=== PATIENT | male | born 1935 | race Caucasian/White ===

== ENCOUNTER → 2017-02-03 | Outpatient (CLI) | payer MEDICARE, OTHER | END | disposition home or self-care (01) | LOC: GMAJ 16:46 | PROVIDERS: ATTEND Family Medicine | DX: D51.3 Other dietary vitamin B12 deficiency anemia (principal) ==

== ENCOUNTER → 2017-04-30 | Outpatient (CLI) | payer MEDICARE, OTHER ==
--- NOTE | 2017-05-02 19:52 | US ---
EXAM DESCRIPTION: Carotid Duplex CLINICAL HISTORY: OCCLUSION AND STENOSIS OF LEFT CAROTID ARTERY COMPARISON: MRI scan of the brain October 2015. TECHNIQUE: Transcutaneous scanning utilizing 2-dimensional and Doppler modes to evaluate the bilateral carotid systems and vertebral arteries. Percentage of diameter of stenosis or no stenosis recorded will be based upon NASCET criteria. FINDINGS: Peak systolic/end diastolic (CM-Sec) CCA Right 99/16 Left 81/19. ICA Right proximal 64/9, mid 67/17. Left proximal 88/15, mid 132/29. Vertebral Right 50/9 Left 42/8. ECA (PS Only) Right 60 left 101. ICA/CCA peak systolic ratio: Right 0.7 Left 1.6 ICA/CCA end diastolic ratio: Right 1.1 Left 1.5 Vertebral arteries: antegrade flow. Comments: Bilateral atherosclerotic plaque in bilateral common carotid bulbs and the proximal ICAs. Minimal color turbulent flow in the proximal right ICA with spectral broadening. Area stenosis in the proximal ICA is 23% diameter stenosis is 37%. Color turbulent flow and spectral broadening in the proximal left ICA. Area stenosis in the left CCA bulb is 36% diameter stenosis is 38%. There is stenosis in the proximal left ICA is 71% and diameter stenosis is 64%. IMPRESSION: 1. 2-dimensional measurements at the proximal right ICA show critical area stenosis of 71% and diameter stenosis of 64%. The stenosis is less than 70% by Doppler evaluation. Consider CTA evaluation due to discordance of findings. Doppler evaluation of the remaining carotid systems and vertebral arteries shows no hemodynamically significant stenoses. 2. Moderate to severe amount of plaque seen in the carotid arteries bilaterally. Bilateral vertebral arteries showed antegrade-cephalad flow. Electronically signed by: Yefri Song MD 05/02/2017 7:50 PM CDT
== END | disposition home or self-care (01) ==
LOC: US 09:25
PROVIDERS: ATTEND Family Medicine
DX: I65.22 Occlusion and stenosis of left carotid artery (principal)

== ENCOUNTER → 2017-06-07 | Outpatient (CLI) | payer MEDICARE, OTHER ==
--- NOTE | 2017-06-08 08:01 | CT ---
EXAM DESCRIPTION: CTA Neck CLINICAL HISTORY: 81 years, Male, CAROTID STENOSIS COMPARISON: Carotid sonography April 30, 2017 TECHNIQUE: Rapid bolus administration of nonionicIV contrast was performed with thin-section axial scanning of the thoracic outlet and neck performed in a dynamic fashion. Reconstructed multiplanar and three dimensional MIP and/or VRT images were created on a separate dedicated workstation were reviewed along with the source axial images and stored in the patient's medical record. Stenoses were evaluated using the NASCET criteria. This exam was performed according to our departmental dose-optimization program, which includes automated exposure control, adjustment of the mA and/or kV according to patient size and/or use of iterative reconstruction technique. FINDINGS: Bolus enhanced examination of the thoracic outlet and neck was performed with satisfactory vascular opacification. Within the thoracic outlet and anatomic variant with a common origin of the innominate artery and left common carotid artery is noted with no significant stenosis. Review of the carotid sonogram suggests that the ICA stenosis is actually left-sided and reported in the body of the report and not right-sided as reported in the impression within the report. On the right the bifurcation of the innominate artery and the bifurcation of the common carotid artery are widely patent without significant atherosclerosis or stenosis. Moderate surface calcification of the carotid siphon within the petrous ridges evident with satisfactory intracranial filling noted. Satisfactory filling of the vertebral artery with a patent origin is noted. No significant right-sided carotid stenosis is noted. On the left, or extensive calcific plaque in the proximal ICA is present. There is poor visualization of a short segment of the proximal CCA related to contrast artifact from the left subclavian vein but no significant stenosis identified. At the distal extent of the proximal ICA plaque, there is AP diameter narrowing of the ICA lumen to approximately 2 mm consistent with an estimated 60% proximal ICA stenosis. This is best visualized on axial image 65 and sagittal image 65 as well. Antegrade flow in good filling of the external carotid artery is present. Satisfactory filling of the vertebral artery without significant stenosis is noted again with significant artifact from dense contrast in the subclavian vein slightly obscuring the origin of the left vertebral artery. Intracranially atherosclerosis within the carotid siphon of the left ICA is noted with satisfactory anterior and middle cerebral artery filling. IMPRESSION: 1. Diffuse mild atherosclerosis involving the aortic arch great vessels and ICA bifurcations as well as both carotid siphons. 2. No hemodynamically significant or high-grade stenosis of the right ICA is noted. Please note that the findings on the recent carotid sonogram actually applied to the left ICA rather than the right. 3. Moderate proximal left ICA atherosclerotic calcification with estimated focal 60% stenosis 1 cm distal to the origin of the ICA in the AP diameter only. This represents a borderline hemodynamically significant stenosis. 4. Additional high-grade stenoses are not identified. Electronically signed by: Bubba Dumont MD 06/08/2017 7:59 AM [facility]
== END | disposition home or self-care (01) ==
LOC: CT 09:46
PROVIDERS: ATTEND Internal Medicine Cardiovascular Disease
DX: I65.23 Occlusion and stenosis of bilateral carotid arteries (principal)

== ENCOUNTER → 2017-09-22 | Outpatient (CLI) | payer MEDICARE, OTHER | LOC: GMAJ 11:13 | PROVIDERS: ATTEND Family Medicine | DX: Z12.5 Encounter for screening for malignant neoplasm of prostate (principal) ==

== ENCOUNTER 2019-02-24 05:44 | Day surgery (SDC) | payer MEDICARE, OTHER ==
[2019-02-24] MEDS ORDERED: LACTATED RINGERS 1,000 ML ONE (07:01)
[2019-02-24] MEDS ORDERED: cefOXitin SODIUM 2 GM INJ IVPB ONE (07:01)
[2019-02-24] MEDS ORDERED: SODIUM CHL 0.9% 50ML MIN-BAG+ 50 ML IVPB ONE (07:07)
[2019-02-24] MEDS ORDERED: ROCURONIUM BROMIDE 10 MG/ML VIAL ONE (09:26)
[2019-02-24] MEDS ORDERED: ACETAMINOPHEN IV 1000MG 100 ML ONE (09:26)
[2019-02-24] MEDS ORDERED: fentaNYL CITRATE INJ 50 MCG/ML AMP ONE (09:26)
[2019-02-24] MEDS ORDERED: LIDOCAINE 1% 50 ML VIAL INJ ONE (09:44)
[2019-02-24] MEDS ORDERED: SUGAMMADEX SODIUM 200 MG/2 ML VIAL IV ONE (10:51)
--- NOTE | 2019-02-24 11:29 | OP ---
DATE OF PROCEDURE: 02/24/19 PREOPERATIVE DIAGNOSIS: 1. Anal pain. 2. Constipation. 3. 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 POSTOPERATIVE DIAGNOSIS: 1. Anal fistula. 2. Benign stricture. PROCEDURE: 1. Anoplasty, left lateral with a house flap. 2. Fistulotomy, posterior midline with seton placement. SURGEON: Gato Hernandez MD. ANESTHESIA: General and local. FINDINGS: He did have a radial fistula in the right posterior midline, only about 2.5 cm long. The stricture appeared benign. No evidence of malignancy or masses circumferentially with dominant stricture at the anal verge on the left side. A house flap was created approximately 2.5 cm square and appeared viable and had excellent digitation afterwards with no residual stricture. COMPLICATIONS: None. ESTIMATED BLOOD LOSS : Minimal. CONDITION: Stable. PLAN: Discharge home. INDICATION: The patient presented with stool changes, increasing constipation and pain. He has been on laxatives and has had loose stools, otherwise they were very skinny. On evaluation he was found to have what appeared to be a posterior fistulous opening and also digital rectal exam had a significant stricture. He did not have significant contraindication for surgery, so he was consented for this procedure understanding that fistulotomy involves very delicate tissue in a confined space and the results are not always ideal, but there is a great chance it could help him and if the one side done did not fix it, the other side could always be utilized to open up even more if necessary. He understood and wished to proceed. DESCRIPTION OF PROCEDURE: He was brought to the Operating Suite in supine position. General anesthesia was induced in a prone jackknife position including cheeks taped apart. He was prepped and draped in sterile fashion. On digital rectal exam, I could barely put in an index finger. We put in a small speculum and identified the fistula itself being in the right posterior midline. I passed a probe and, indeed, it was an easily passed direct radial fistula. We opened the skin over, exposing the internal sphincter, about 1.5 cm of the distal internal sphincter. I did not feel comfortable doing a sphincterotomy as this is on the midline, so a 2-0 Silk was used as a seton and brought through without difficulty and tied. No other pathology, masses or anything on digital rectal exam was seen. In evaluating the stricture, it was a stricture of the skin in the anal verge and slightly to the dentate, uncertain etiology, possibly related to prior hemorrhoid surgery and excessive scarring. A house flap seemed very appropriate at this time as it was a distal stricture. We marked it and used local anesthesia without epinephrine. We made a radial incision from the dentate out beyond the strictured skin edge and then created our house flap, cutting and once it had adequate mobility with good underlying tissue, we then brought it down into the anal canal. We used interrupted 3-0 Silk sutures at multiple points to secure the house flap. It still appeared very viable at the end. We closed the external with interrupted 3-0 Vicryl. We added a pudendal nerve block. He tolerated the procedure. He was then awakened and taken to Recovery in stable condition to be discharged. #[id number] [facility]
[2019-02-24 11:55] VITALS: BP 101/52; TEMP 97.1; O2SAT 96
[2019-02-24] MEDS ORDERED: LIDOCAINE 1% 10 ML VIAL INJ ONE (12:00)
[2019-02-24] MEDS ORDERED: raNITIdine HCL INJ 25 MG/ML VIAL IV ONE (12:00)
[2019-02-24] MEDS ORDERED: SODIUM CHLORIDE 0.9% 50 ML VIAL INJ ONE (12:00)
[2019-02-24] MEDS ORDERED: KETOROLAC TROMETHAMINE INJ 30 MG/ML VIAL IV ONE (12:00)
[2019-02-24] MEDS ORDERED: PROPOFOL 200 MG/20 ML VIAL IV ONE (12:00)
[2019-02-24] MEDS ORDERED: DEXAMETHASONE INJ 10 MG/ML VIAL IV ONE (12:00)
[2019-02-24] MEDS ORDERED: diphenhydrAMINE HCL 50 MG/ML VIAL IV ONE (12:00)
== END 2019-02-24 12:15 | disposition home or self-care (01) ==
LOC: AMB 05:44
PROVIDERS: ATTEND Surgery
DX: K60.3 Anal fistula (principal); K62.4 Stenosis of anus and rectum; K59.00 Constipation, unspecified; I10 Essential (primary) hypertension; I25.10 Atherosclerotic heart disease of native coronary artery without angina pectoris; E78.00 Pure hypercholesterolemia, unspecified; K21.9 Gastro-esophageal reflux disease without esophagitis; R00.1 Bradycardia, unspecified; Z79.82 Long term (current) use of aspirin; Z79.899 Other long term (current) drug therapy
CPT/HCPCS: 00902; 46020; 46270; 46700; 93005; A4216; J0694; J1100; J1200; J1885; J2780; J3010; J3490; J7050; J7120

== ENCOUNTER 2019-04-10 05:32 | Day surgery (SDC) | payer MEDICARE, OTHER ==
[2019-04-10] MEDS ORDERED: LACTATED RINGERS 1,000 ML ONE ×2 (08:36→09:41)
[2019-04-10] MEDS ORDERED: LIDOCAINE 1% 10 ML VIAL INJ ONE (10:00)
[2019-04-10] MEDS ORDERED: PROPOFOL 200 MG/20 ML VIAL IV ONE (10:00)
[2019-04-10] MEDS ORDERED: BUPIVACAINE 0.5% W/EPI 30 ML VIAL INJ ONE (13:18)
[2019-04-10] MEDS ORDERED: KETAMINE HCL 50 MG/ML SYG IV ONE (13:21)
--- NOTE | 2019-04-10 14:25 | OP ---
DATE OF PROCEDURE: 04/10/19 PREOPERATIVE DIAGNOSIS: 1. 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 POSTOPERATIVE DIAGNOSIS: 1. 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 PROCEDURE: 1. Removal of anal seton. SURGEON: Gato Hernandez MD. ANESTHESIA: General. PROCEDURE: The seton was still in place. The fistula had healed. The operation was successful in creating more space in his anal canal. There is still decrease in distention on his right lateral side and if problematic, could have additional anoplasty on that side, but overall we can get up to an easy in depth knuckle, second in depth knuckle, so much improve to lack of fingertip insertion before. He tolerated the procedure and was taken to Recovery to be discharged. [facility][id number] [facility]
[2019-04-10 14:55] VITALS: BP 109/68; TEMP 98.1; O2SAT 97
== END 2019-04-10 14:45 | disposition home or self-care (01) ==
LOC: AMB 05:32
PROVIDERS: ATTEND Surgery
DX: K60.3 Anal fistula (principal); K62.4 Stenosis of anus and rectum; I10 Essential (primary) hypertension; J44.9 Chronic obstructive pulmonary disease, unspecified; I25.10 Atherosclerotic heart disease of native coronary artery without angina pectoris; E78.00 Pure hypercholesterolemia, unspecified; K21.9 Gastro-esophageal reflux disease without esophagitis; M19.90 Unspecified osteoarthritis, unspecified site; Z86.010 Personal history of colon polyps; Z87.891 Personal history of nicotine dependence; Z79.82 Long term (current) use of aspirin; Z79.899 Other long term (current) drug therapy
CPT/HCPCS: 00902; 46030; 46270; J3490; J7120

== ENCOUNTER → 2019-08-16 | Outpatient (CLI) | payer MEDICARE, OTHER | LOC: GMAJ 10:55 | PROVIDERS: ATTEND Family Medicine | DX: Z12.5 Encounter for screening for malignant neoplasm of prostate (principal); I10 Essential (primary) hypertension; E78.2 Mixed hyperlipidemia ==